=== PATIENT | female | born 1985 | race Native Hawaiian/Other Pacific Islander ===

== ENCOUNTER 2018-03-27 22:15 | Emergency (ER) | payer OTHER ==
[2018-03-27 22:16] VITALS: BMI 25.7
[2018-03-27 22:22] VITALS: O2SAT 98
[2018-03-27] MEDS ORDERED: Sodium Chloride 0.9% 1,000 ML IV ONE (22:40)
--- NOTE | 2018-03-27 23:46 | C.PDOC ---
History Of Present Illness 32 year old female presents to the ER with a complaint of chills, cough, and multiple episodes of vomiting today. Denies abdominal pain or diarrhea. Patient was seen by PMD today, diagnosed with flu, and given tamiflu. HPI: Influenza Time Seen by Provider: 03/27/18 22:31 Chief Complaint: Flu-like Symptoms History Per: Patient Exam Limitations: no limitations Onset/Duration Of Symptoms: Hrs Symptoms include: cough, vomiting, other (Chills) Past Medical History Reviewed: Historical Data, Nursing Documentation, Vital Signs Vital Signs: Last Vital Signs Temp 102.7 F H 03/27/18 22:19 Pulse 115 H 03/27/18 22:19 Resp 16 03/27/18 22:19 BP 101/67 03/27/18 22:19 Pulse Ox 98 03/27/18 22:19 - [facility] Procedures [facility] NEC (06/14/13) EPISIOTOMY (06/14/13) Family History: States: Unknown Family Hx - Social History Hx Alcohol Use: No Hx Substance Use: No Review Of Systems Constitutional: Positive for: Chills Cardiovascular: Negative for: Chest Pain, Palpitations Respiratory: Positive for: Cough. Negative for: Shortness of Breath Gastrointestinal: Positive for: Vomiting. Negative for: Abdominal Pain, Diarrhea Genitourinary: Negative for: Dysuria, Hematuria Physical Exam - Physical Exam Appears: Non-toxic, Other (Uncomfortable) Skin: Normal Color, Warm, Dry Head: Atraumatic, Normacephalic Eye(s): bilateral: Normal Inspection Ear(s): Bilateral: Normal Nose: Normal Oral Mucosa: Moist Throat: Normal, No Erythema, No Exudate Neck: Normal, Supple Chest: Symmetrical, No Tenderness Cardiovascular: Rhythm Regular Respiratory: Normal Breath Sounds, No Rales, No Rhonchi, No Wheezing Gastrointestinal/Abdominal: Soft, No Tenderness Neurological/Psych: Oriented x3, Normal Speech, Normal Cognition Medical Decision Making Medical Decision Making: pt feeling much better after toradol and iv fluids and zofran. d/c home with zofran and motrin. pt has tamiflu - ECG O2 Sat by Pulse Oximetry: 98 Disposition Counseled Patient/Family Regarding: Diagnosis, Need For Followup, Rx Given - Disposition Disposition: HOME/ ROUTINE Disposition Time: 23:44 Condition: IMPROVED Additional Instructions: Drink increased fluids. Take ondasetron before meals, three times a day. Take ibuprofen or Tylenol every 6 hours for fever and/or pain. Take Tamiflu until finished. Bed rest. Prescriptions: Acetaminophen [Tylenol 325mg tab] 650 mg PO Q6 #30 tab Ibuprofen [Motrin] 600 mg PO TID #30 tab Ondansetron ODT [Zofran ODT] 4 mg PO TID #12 odt Instructions: Flu, Adult (DC) Forms: [facility] ([place]), General Discharge Instructions - Clinical Impression Clinical Impression: Influenza - PA / COMMUNICATION TECHNICIAN / Resident Statement MD/DO has reviewed & agrees with the documentation as recorded. - Scribe Statement The provider has reviewed the documentation as recorded by the Scribe Vikas Gómez All medical record entries made by the Joelibvicky were at my direction and personally dictated by me. I have reviewed the chart and agree that the record accurately reflects my personal performance of the history, physical exam, medical decision making, and the department course for this patient. I have also personally directed, reviewed, and agree with the discharge instructions and disposition.
[2018-03-27 23:47] VITALS: BP 101/64; PULSE 107; RESP 20; TEMP 101.7
== END 2018-03-28 00:27 | disposition home or self-care (01) ==
LOC: C.ER 22:15
DX: J11.1 Influenza due to unidentified influenza virus with other respiratory manifestations (principal)
CPT/HCPCS: 81025; 96361; 96374; 99283; J1885; J7030